=== PATIENT | male | born 1975 | race Caucasian/White ===

== ENCOUNTER 2017-09-18 09:31 | Emergency (ER) | payer MEDICAID, SELFPAY ==
[2017-09-18 09:32] VITALS: BP 140/88; PULSE 101; RESP 20; TEMP 36.4; O2SAT 97; BMI 24.3
[2017-09-18] MEDS: Naloxone 0.4 MG/ML Syringe IV (09:52)
--- NOTE | 2017-09-18 09:54 | ED.RN ---
PT LETHARGIC BUT AGITATED. POST NARCAN, PT MORE ALERT BUT INCREASINGLY AGITATED.
[2017-09-18 11:35] VITALS: BP 105/65; PULSE 100; RESP 25; O2SAT 100
--- NOTE | 2017-09-18 11:35 | ED.DCSUM_ITS ---
- ER Visit Summary Date of Service: 09/18/17 Chief Complaint: Unresponsiveness History of Present Illness: The patient is a 42 M who admits to snorting heroin on his way to work. He was brought to the ER because of altered level of consciousness. He did not receive Narcan in route. He does admit to heroin and cocaine use. He is injected cocaine in the past. He states he has been tested for hepatitis and HIV and both tests were negative. He presently has no complaints. He was offered assistance for his drug problem and he declined. Physical Examination: Somnolent but arousable. Vital signs are marked for an elevated blood pressure 140/88 and heart rate of 101. Head is atraumatic normocephalic. Pupils are equal round reactive. Extraocular muscles are intact. TMs are pearly white with landmarks noted. Nares patent with no drainage. Posterior pharynx without erythema or exudate. Uvula is midline. There is no dysphonia or dysphasia. Trachea is midline. There is no stridor with auscultation of the neck. Heart is regular without murmur, gallop or rub. S1 and S2 are normal. Lungs are clear to auscultation with good movement of air bilaterally. Extremities are marked for multiple tattoos. There is no evidence of cellulitis or abscess. There is no recent track ritter noted. Neuro exam is nonfocal. Test Results: None were obtained Emergency Department Course and Treatment: Received 1 mg of Narcan. He has been observed for approximately 2 hours. He is alert and oriented and will be discharged home. Treatment Plan: Referral to 180. Disposition: Discharge to home Impression: Altered level of consciousness secondary to admitted heroin use This note was generated with [employer] dictation software. It may contain incorrect words, spelling, and punctuation that were not noted in review of the chart prior to signing ED Disposition - Plan for ED Patient: Disposition: Home or Assisted Living Chief Complaint: Overdose Instructions: ED Overdose Opiate Referrals: Care Physician,No Primary [Primary Care Provider] - EIGHTY,ONE [STAFF PHYSICIAN] - As soon as possible
[2017-09-18 11:38] VITALS: BP 105/65; PULSE 83; RESP 18; O2SAT 100
== END 2017-09-18 11:40 | disposition home or self-care (01) ==
PROVIDERS: Emergency Provider Emergency Medicine
DX: F11.90 Opioid use, unspecified, uncomplicated (principal); Z72.0 Tobacco use; J34.89 Other specified disorders of nose and nasal sinuses; F14.90 Cocaine use, unspecified, uncomplicated
CPT/HCPCS: 99285; A4216; J2310